=== PATIENT | male | born 1955 | race Caucasian/White ===

== ENCOUNTER → 2017-01-18 | Day surgery (SDC) | payer OTHER ==
[~2017-01-18] MED LIST: ALBUTEROL0.09 MG/A1 INH; AUGMENTIN 875-1 EACH PO; CHERATUSSIN AC120 ML PO; CIPRO 500MG (E500 MG PO; CIPRO 500MG TA500 MG PO; CRESTOR5 M1 PO; CYCLOBENZAPRINE10 M1 PO; CYCLOBENZAPRINE5 M2 PO; DIOVAN80 M1 PO; DOCUSATE SOD100 MG PO; ECOTRIN81 MG PO; FISH OIL CONCEN1 SGL PO; FLAG500 PO; MOBIC15 MG PO; NAPROSYN500 M1 PO; PANTOPRAZOLE SO40 MG PO; PENICILLIN V P500 M1 PO; PERCOCET 325 MG1 TA2 PO; PERCOCET 325 MG1 TAB PO; PERCOCET 5-3251 EACH PO; PREDNISONE10 MG PO; ZITHROMAX Z-PA250 M1 PO
--- NOTE | 2017-01-20 18:02 | Operative Report ---
Operative/Inv Procedure Report Surgery Date: 01/18/17 Name of Procedure: Open mesh (4.3 cm Ventralex) repair of incarcerated ventral incisional hernia Pre-Operative Diagnosis: Incarcerated ventral incisional hernia Post-Operative Diagnosis: Same Estimated Blood Loss: scant Surgeon/[employer]: YAYA HOFFMAN,STEPHANI MONREAL Anesthesia: general endotracheal tube Operative/Procedure Note Note: Patient was placed on the OR table in the supine position. After successful induction of general anesthesia, another timeout was done, antibiotics given, the abdomen was clipped prepped and draped in the usual sterile fashion. An incision was planned to reopen the scar overlying the hernia was at the level of the umbilicus, this spot was infiltrated with local anesthetic and then made with a 15 blade. This was deepened with cautery and the herniated fat and overlying sac were dissected circumferentially off the fascia, defining the true edges of the defect. It was oriented horizontally, we then inserted the Ventralex coated 4.3 centimeter mesh underneath the defect using the tails to center it and then closed the defect with interrupted 2-0 Maxon sutures in this case 4, incorporating the mesh with each bite. The subcutaneous layer and Veena's fascia were reapproximated to cover. The incision was irrigated and then the skin was reapproximated with a running subcuticular 4-0 Biosyn, followed by Mastisol, Steri-Strips Telfa Tegaderm. EBL minimal lap and sponge counts correct wound expectancy clean IV fluids crystalloid complications none patient tolerated the procedure well was awakened extubated returned to the recovery room in satisfactory condition.
== END ==
LOC: STS 02:00
DX: K43.0 Incisional hernia with obstruction, without gangrene (principal); I10 Essential (primary) hypertension; F17.200 Nicotine dependence, unspecified, uncomplicated; E66.9 Obesity, unspecified; Z68.31 Body mass index [BMI] 31.0-31.9, adult; K22.70 Barrett's esophagus without dysplasia
CPT/HCPCS: C1781; C9399; J0690; J2250